=== PATIENT | female | born 1975 | race Hispanic/Latino ===

== ENCOUNTER 2018-06-03 12:56 | Emergency (ER) | payer OTHER | END 2018-06-03 15:21 | disposition home or self-care (01) | LOC: M ED 12:56 | DX: M62.838 Other muscle spasm (principal); V49.49XA Driver injured in collision with other motor vehicles in traffic accident, initial encounter; Y92.410 Unspecified street and highway as the place of occurrence of the external cause | CPT/HCPCS: 99283 ==

== ENCOUNTER → 2020-06-18 | Outpatient (CLI) | payer SELFPAY ==
[~2020-06-18] MED LIST: CYCL-707 PO; IBUP80TA PO; MELO15TA28 PO
== END ==
LOC: M LABSMTC 14:24
PROVIDERS: ATTEND Pediatrics
DX: Z20.828 Contact with and (suspected) exposure to other viral communicable diseases (principal)